=== PATIENT | female | born 1995 | race Caucasian/White ===

== ENCOUNTER 2018-06-30 07:55 | Emergency (ER) | payer BC ==
[2018-06-30] MEDS ORDERED: Ondansetron ODT 4 MG TAB ONE (08:19)
== END 2018-06-30 09:12 | disposition home or self-care (01) ==
LOC: MADERS 07:55
DX: R11.2 Nausea with vomiting, unspecified (principal)
CPT/HCPCS: 99283; Q0162

== ENCOUNTER 2018-09-23 10:17 | Emergency (ER) | payer BC | END 2018-09-23 10:42 | disposition home or self-care (01) | LOC: MADERS 10:17 | DX: J06.9 Acute upper respiratory infection, unspecified (principal) | CPT/HCPCS: 99281 ==

== ENCOUNTER 2020-05-29 19:12 | Emergency (ER) | payer BC ==
--- NOTE | 2020-05-29 20:53 | RAD ---
THREE VIEWS OF THE RIGHT FOOT: 05/29/20 COMPARISON: None. HISTORY: Right foot pain for three days. FINDINGS: three views of the right foot shows no evidence of acute fracture or dislocation. No soft tissue swel ling is seen. No degenerative changes are seen. IMPRESSION: No evidence of acute osseous abnormality. POS: [facility]
== END 2020-05-29 22:00 | disposition home or self-care (01) ==
LOC: MADERS 19:12
DX: S93.601A Unspecified sprain of right foot, initial encounter (principal); W22.8XXA Striking against or struck by other objects, initial encounter

== ENCOUNTER 2023-06-25 17:22 | Emergency (ER) | payer BC, SELFPAY | END 2023-06-25 18:30 | disposition home or self-care (01) | LOC: MADERS 17:22 | DX: M76.62 Achilles tendinitis, left leg (principal) ==